=== PATIENT | female | born 1945 | race Two or more races ===

== ENCOUNTER → 2017-10-21 07:25 | Outpatient (CLI) | payer MEDICARE, SELFPAY ==
[2017-10-21 09:00] LABS: AST(SGOT) 16 U/L (15-37); Alanine Aminotransfer ALT/SGPT 16 U/L (13-56); Albumin, Serum 3.2 g/dL (3.2-5.0); Alkaline Phosphatase 87 U/L (45-117); Bilirubin, Direct 0.09 mg/dL (0.00-0.30); Cholesterol 161 mg/dL (200); Globulin 3.9 g/dL (2.2-4.2); High Density Lipoprotein 52 mg/dL; Protein, Total 7.1 g/dL (6.4-8.2); Triglycerides 92 mg/dL; Very Low Density Lipoprotein 18 mg/dL (5-40)
== END ==
PROVIDERS: Visit Provider Internal Medicine Cardiovascular Disease
DX: E78.5 Hyperlipidemia, unspecified (principal)
CPT/HCPCS: 36415; 80061; 80076

== ENCOUNTER → 2017-11-25 13:01 | Outpatient (CLI) | payer MEDICARE, SELFPAY ==
--- NOTE | 2017-11-25 13:02 | CDU_ITS ---
Reason For Study: vertigo Rt. Velocities/BP Lt. Velocities/BP Prox CCA 91.5/16.4 cm/sec. Prox CCA 85.6/21.1 cm/sec. Mid CCA 86.2/20.5 cm/sec. Mid CCA 82.7/20.5 cm/sec. Dist CCA 76.2/19.9 cm/sec. Dist CCA 88.5/22.9 cm/sec. Prox ICA 70.7/25.1 cm/sec. Prox ICA 122/30.6 cm/sec. Mid ICA 79.4/24.4 cm/sec. Mid ICA 123/29.9 cm/sec. Dist ICA 108/34.6 cm/sec. Dist ICA 116/31.4 cm/sec. Rt. ICA/CCA = 1.3. Lt. ICA/CCA = 1.5. Prox ECA 143/12.8 cm/sec. Prox ECA 225/26.2 cm/sec. Rt. Vert. 38.5/11.0 cm/sec. Lt. Vert. 86.4/23.6 cm/sec. Right Extracranial There is intimal thickening but no significant atherosclerotic plaque noted in the right common carotid artery. There is homogeneous, smooth atherosclerotic plaque noted in the right internal carotid artery. There is heterogeneous, irregular atherosclerotic plaque noted in the right external carotid artery. Antegrade flow is noted in the right vertebral artery. Left Extracranial There is intimal thickening but no significant atherosclerotic plaque noted in the left common carotid artery. There is heterogeneous, irregular atherosclerotic plaque noted in the left internal carotid artery. There is homogeneous, smooth atherosclerotic plaque noted in the left external carotid artery. Antegrade flow is noted in the left vertebral artery. Procedure Carotid Duplex [id number]. The exam was diagnostic. Exam performed in department. Interpretation Summary Minimal smooth plague at the proximal right internal carotid with <50% stenosis. Mild disease right external carotid Focal plague at the proximal left internal carotid with <50% stenosis. Moderate disease left external carotid Patent and antegrade vertebrals bilaterally Findings are similar to the previous examination of 01/14/10. Ordering Physician: Fazal Evans Performed By: Carlos A España RVT
== END ==
PROVIDERS: Visit Provider Internal Medicine Cardiovascular Disease
DX: R09.89 Other specified symptoms and signs involving the circulatory and respiratory systems (principal)
CPT/HCPCS: 93880

== ENCOUNTER → 2020-05-21 08:13 | Outpatient (CLI) | payer MEDICARE, SELFPAY ==
[2017-11-10 14:50] VITALS: BMI 23.4
[2020-05-21 08:38] LABS: Absolute Lymphocyte Count 1.69 X10^3/uL (0.83-4.51); Absolute Neutrophil Count 2.8 X10^3/uL (2.0-7.7); Basophil# 0.04 X10^3/uL; Basophil% 0.8 % (0-1); Eosinophil# 0.16 X10^3/uL; Eosinophils% 3.2 % (0-5); Hematocrit 40.8 % (37-47); Hemoglobin 12.8 g/dL (12.0-15.0); Lymphocyte # 1.69 X10^3/ul (4.0); Lymphocyte % 33.5 % (19-41); Mean Corp Hgb Conc 31.4 g/dL (32-36); Mean Corpuscular Volume 92.5 fL (81-99); Mean Platelet Vol. 9.7 fl (6.2-12.0); Monocyte# 0.32 X10^3/uL; Monocyte% 6.3 % (0-10); NRBC Flagged by Analyzer 0 % (0-5); Neutrophil # 2.82 X10^3/uL (2.7-7.7); Neutrophil % 55.8 % (47-70); Platelet Count 309 K/mm3 (150-450); RBC Distribution Width CV 12.1 % (11.6-14.6); RBC Distribution Width SD 41.7 fl (35.1-43.9); Red Blood Count 4.41 M/mm3 (4.2-5.4); White Blood Count 5.1 K/mm3 (4.4-11.0)
[2020-05-21 09:18] LABS: AST(SGOT) 20 U/L (15-37); Alanine Aminotransfer ALT/SGPT 18 U/L (13-56); Albumin, Serum 3.6 g/dL (3.2-5.0); Alkaline Phosphatase 91 U/L (45-117); Anion Gap 4 (5-15); BUN 15 mg/dL (7-18); BUN/Creat Ratio 23.7 RATIO (10-20); Bilirubin, Direct 0.13 mg/dL (0.00-0.30); Calcium,Total 8.7 mg/dL (8.5-10.1); Chloride 105 mmol/L (98-107); Cholesterol 165 mg/dL (200); Creatinine, Serum 0.63 mg/dL (0.55-1.02); EST Glomerular Filtration Rate 97 mL/min (>60); Est Glom Filt Rate - Afr Amer 118 mL/min (>60); Globulin 3.7 g/dL (2.2-4.2); Glucose 101 mg/dL (74-106); High Density Lipoprotein 64 mg/dL; Protein, Total 7.3 g/dL (6.4-8.2); Sodium Level 139 mmol/L (136-145); Triglycerides 90 mg/dL; Very Low Density Lipoprotein 18 mg/dL (5-40)
== END ==
PROVIDERS: Referring Provider Internal Medicine Cardiovascular Disease; Visit Provider Internal Medicine Cardiovascular Disease
DX: I25.10 Atherosclerotic heart disease of native coronary artery without angina pectoris (principal); I25.2 Old myocardial infarction; Z95.5 Presence of coronary angioplasty implant and graft; E78.00 Pure hypercholesterolemia, unspecified
CPT/HCPCS: 36415; 80048; 80061; 80076; 85025

== ENCOUNTER → 2020-07-03 07:03 | Outpatient (CLI) | payer MEDICARE, SELFPAY ==
[2020-06-11 07:53] VITALS: BMI 22.3
--- NOTE | 2020-07-03 18:30 | STRESSREP ---
Stress Test Report Exercise myocardial perfusion stress test. 75-year-old lady with a history of previous coronary artery stenting. Stress protocol: Resting EKG demonstrates sinus bradycardia with a rate of 51 bpm normal intervals are noted resting blood pressure is 116/62 mmHg. The patient exercised according to regular [facility] protocol for a total duration of 4 minutes and 28 seconds the maximum heart rate attained was 103 bpm which was 71% of max impacted heart rate the maximum workload was 6.3 metabolic equivalents. The test was terminated due to dyspnea. At rest there were no ST or T wave changes noted suggest ischemia at peak exercise upsloping ST changes were noted with no meet any criteria for ischemia. The resting blood pressure was 106/62 with a peak blood pressure 142/70 mmHg. No clinical angina was noted. Myocardial perfusion protocol. 11.2 mCi of technetium 99m sestamibi was injected at rest. Patient exercised for 4-1/2 minutes and at peak exercise 31.5 mCi of technetium 99m sestamibi was injected stress images were obtained stress and rest images were reconstructed and compared in the short axis vertical long horizontal long axis. Gated images were also obtained Perfusion SPECT analysis: Review of the stress images demonstrate normal uptake of tracer noted in all areas of the myocardium the resting images similar demonstrate normal uptake of tracer noted in all areas of the myocardium. No areas of reversibility are noted suggest ischemia no previous infarct is noted. Gated SPECT analysis: The gated ejection fraction is 83%. Conclusion: Normal exercise myocardial perfusion stress test at a moderate workload. Failure to attain 85% of max impacted heart rate noted. Preserved ejection fraction.
== END ==
PROVIDERS: Referring Provider Internal Medicine Cardiovascular Disease; Visit Provider Internal Medicine Cardiovascular Disease
DX: I25.10 Atherosclerotic heart disease of native coronary artery without angina pectoris (principal); Z95.5 Presence of coronary angioplasty implant and graft
CPT/HCPCS: 78452; 93017; A9500; A4216

== ENCOUNTER 2020-08-29 08:59 | Outpatient (RCR) | payer MEDICARE, SELFPAY ==
[2020-06-11 07:53] VITALS: BMI 22.3
== END 2020-08-29 23:59 ==
LOC: IMMUN 08:59
PROVIDERS: Visit Provider Family Medicine
DX: Z23 Encounter for immunization (principal)
CPT/HCPCS: 0011A; 0012A; 91301

== ENCOUNTER 2022-07-16 11:11 | Outpatient (CLI) | payer MEDICARE, SELFPAY ==
[2022-07-16 12:56] LABS: Absolute Lymphocyte Count 1.75 X10^3/uL (0.83-4.51); Absolute Neutrophil Count 3.1 X10^3/uL (2.0-7.7); Basophil# 0.06 X10^3/uL; Basophil% 1.1 % (0-1); Eosinophil# 0.13 X10^3/uL; Eosinophils% 2.3 % (0-5); Hematocrit 41.3 % (37-47); Hemoglobin 12.8 g/dL (12.0-15.0); Lymphocyte # 1.75 X10^3/ul (0.83-4.51); Lymphocyte % 31.5 % (19-41); Mean Corpuscular Hgb 28.6 pg (27.0-32.0); Mean Corpuscular Volume 92.2 fL (81-99); Mean Platelet Vol. 10.6 fl (6.2-12.0); Monocyte# 0.45 X10^3/uL; Monocyte% 8.1 % (0-10); NRBC Flagged by Analyzer 0 % (0-5); Neutrophil # 3.14 X10^3/uL (2.7-7.7); Neutrophil % 56.5 % (47-70); Platelet Count 341 K/mm3 (150-450); RBC Distribution Width CV 12.5 % (11.6-14.6); RBC Distribution Width SD 42.4 fl (35.1-43.9); Red Blood Count 4.48 M/mm3 (4.2-5.4); White Blood Count 5.6 K/mm3 (4.4-11.0)
[2022-07-16 13:34] LABS: AST(SGOT) 15 U/L (15-37); Alanine Aminotransfer ALT/SGPT 20 U/L (13-56); Albumin, Serum 3.5 g/dL (3.2-5.0); Alkaline Phosphatase 91 U/L (45-117); Anion Gap 3 (5-15); BUN 16 mg/dL (7-18); BUN/Creat Ratio 29.5 RATIO (10-20); Bilirubin, Direct 0.12 mg/dL (0.00-0.30); Calcium,Total 8.9 mg/dL (8.5-10.1); Chloride 106 mmol/L (98-107); Cholesterol 169 mg/dL (200); Creatinine, Serum 0.54 mg/dL (0.55-1.02); EST Glomerular Filtration Rate 116 mL/min (>60); Est Glom Filt Rate - Afr Amer 140 mL/min (>60); Globulin 3.7 g/dL (2.2-4.2); Glucose 84 mg/dL (74-106); High Density Lipoprotein 62 mg/dL; Magnesium 2.3 mg/dL (1.6-2.6); Potassium 3.8 mmol/L (3.5-5.1); Protein, Total 7.2 g/dL (6.4-8.2); Sodium Level 139 mmol/L (136-145); Thyroid Stim Hormone (TSH) 5.47 uIU/mL (0.358-3.74); Triglycerides 171 mg/dL; Very Low Density Lipoprotein 34 mg/dL (5-40)
== END 2022-07-16 23:59 | disposition home or self-care (01) ==
PROVIDERS: Referring Provider Internal Medicine Cardiovascular Disease; Visit Provider Internal Medicine Cardiovascular Disease
DX: Z95.5 Presence of coronary angioplasty implant and graft (principal); E03.5 Myxedema coma; I25.2 Old myocardial infarction
CPT/HCPCS: 36415; 80048; 80061; 80076; 83735; 84443; 85025

== ENCOUNTER → 2025-03-02 | Outpatient (CLI) | payer MEDICARE, SELFPAY ==
--- NOTE | 2025-03-02 09:33 | ECHOD_ITS ---
Reason For Study Reason For Study: CAD/ASHD Procedure This was a 2D Doppler, Color Flow transthoracic echocardiogram. Exam performed in department. Left Ventricle Normal LV size. Left ventricular systolic function is normal. The left ventricular ejection fraction is 60 %. Stage 1 diastolic dysfunction. No regional wall motion abnormalities noted. Right Ventricle Normal RV size. Normal systolic function. Atria Normal left atrium. Normal right atrium. Mitral Valve Normal mitral valve. Tricuspid Valve Normal tricuspid valve. Aortic Valve Normal aortic valve. Pulmonic Valve Normal pulmonic valve. Great Vessels Normal aortic root. The pulmonary artery is normal size. Inferior vena cava collapse with respiration. Pericardium/Pleural No pericardial effusion. MMode/2D Measurements & Calculations LVIDd: 3.9 cm IVSd: 1.1 cm Ao root diam: 2.8 cm LVIDs: 2.1 cm LVPWd: 1.1 cm FS: 46.9 % LAV(MOD-bp): 32.2 ml LVAd ap4: 16.8 cm2 SV(MOD-sp4): 22.1 ml LAV(MOD-bp) Indexed: 21.7 ml/m2 LVLd ap4: 6.2 cm SI(MOD-sp4): 14.8 ml/m2 LAV(MOD-sp2): 33.5 ml EDV(MOD-sp4): 38.7 ml LAV(MOD-sp4): 28.4 ml EDV(sp4-el): 38.4 ml LVAs ap4: 10.0 cm2 LVLs ap4: 5.4 cm ESV(MOD-sp4): 16.7 ml ESV(sp4-el): 15.7 ml EF(MOD-sp4): 57.0 % EF(sp4-el): 59.2 % SV(sp4-el): 22.7 ml LA A4 area: 13.1 cm2 LA dimension(2D): 2.4 cm RA A4 area: 10.1 cm2 Time Measurements MV dec time: 0.27 sec Doppler Measurements & Calculations MV E max reed: 77.3 cm/sec Lat Peak E' Reed: 7.5 cm/sec Med Peak E' Reed: 6.2 cm/sec MV A max reed: 99.1 cm/sec E/E' lat: 10.3 E/E' med: 12.4 MV E/A: 0.78 MV V2 max: 96.7 cm/sec Ao V2 max: 104.8 cm/sec MV max P.7 mmHg MV dec slope: 281.5 cm/sec2 Ao max P.4 mmHg MV V2 mean: 51.6 cm/sec Ao V2 mean: 71.6 cm/sec MV mean P.4 mmHg Ao mean P.4 mmHg MV V2 VTI: 37.9 cm Ao V2 VTI: 28.9 cm AV (velocity ratio): 0.78 LV V1 max: 87.1 cm/sec PA V2 max: 70.3 cm/sec LV V1 max P.0 mmHg PA V2 mean: 51.5 cm/sec LV V1 mean P.6 mmHg LV V1 mean: 59.4 cm/sec LV V1 VTI: 22.5 cm ECHO/Echo Complete Interpretation Summary Normal LV size. Left ventricular systolic function is normal. The left ventricular ejection fraction is 60 %. Stage 1 diastolic dysfunction. Ordering Physician: Fazal Evans Referring Physician: Fazal Evans Performed By: Amna Ho RCS
[2025-03-02 10:05] LABS: Hematocrit 36.5 % (37-47); Hemoglobin 12.0 g/dL (12.0-15.0); Immature Granulocytes Count 0.030 X10^3/uL (0.0-0.0); Mean Corp Hgb Conc 32.9 g/dL (32-36); Mean Corpuscular Volume 89.2 fL (81-99); Mean Platelet Vol. 9.6 fl (6.2-12.0); NRBC Flagged by Analyzer 0 % (0-5); Platelet Count 322 K/mm3 (150-450); RBC Distribution Width CV 12.5 % (11.6-14.6); RBC Distribution Width SD 41.2 fl (35.1-43.9); Red Blood Count 4.09 M/mm3 (4.2-5.4); White Blood Count 5.6 K/mm3 (4.4-11.0)
--- OUTSIDE RECORDS SUMMARY | 2025-03-02 10:50 | XMS RPT_ITS | CCD ---
Author Organization [facility] Care Team Providers Care Repacker Name Role Phone Care Physician, No Primary Primary Care Provider Unavailable Care Physician, No Primary Referring Provider Un available Dr. Fazal Evans Attending Provider [phone] Fazal Evans Attending Unavailable Care Physician, No Primary Referring Unava ilable Care Physician, No Primary Primary Care Unava ilable Care Physician, No Primary Primary Care Unava ilFazal Yañez Referring Unavailable Fazal Evans Attending Unavailable Medications Current Medications Medication Drug Class(es) Dates Sig (Normalized) Sig (Original) aspirin 81 mg delayed release oral tablet (5 sources) Platelet Aggregation Inhibitor, Nonsteroidal Anti-inflammatory Drug Start: 11-08-2017 End: 02-23-2025 take 1 tablet by mouth once daily as needed Aspirin (Adult Low Dose Aspirin) 81 mg tablet,delayed release (DR/EC) Active 81 mg PO daily as needed 0 February 23, 2025 1:10pm Does not take routinely. Frequently holds dose due to bruising and taking aleve 24 hr metoprolol succinate 25 mg extended release oral tablet (15 sources) beta-Adrenergic Piter Start: 06-11-2020 End: 01-15-2025 take 2 tablets by mouth once daily Metoprolol Succinate 25 mg tablet extended release 24 hr Active 12.5 mg PO DAILY 45 3 January 15, 2025 1:27pm Start: 06-11-2020 End: 11-24-2021 take 12.5 mg by mouth once daily Metoprolol Succinate Active 12.5 MG PO daily 45 November 24, 2021 2:31pm Start: 03-22-2019 End: 06-11-2020 take 1 tablet by mouth once daily Metoprolol Succinate 25 mg tablet extended release 24 hr Discontinued 25 mg PO daily 90 90 3 March 23, 2019 7:06am June 11, 2020 12:49pm Start: 11-08-2017 End: 11-05-2018 take 1 tablet by mouth once daily Metoprolol Succinate 25 mg tablet extended release 24 hr Discontinued 25 mg PO daily 90 90 3 November 10, 2017 2:54pm November 04, 2018 12:00am November 05, 2018 12:11am naproxen sodium 220 mg oral tablet (2 sources) Nonsteroidal Anti-inflammatory Drug Start: 07-16-2022 take 1 tablet by mouth once daily Naproxen Sodium (Aleve) 220 mg tablet Active 220 mg PO DAILY July 16, 2022 1:00am nitroglycerin 0.4 mg sublingual tablet (4 sources) Nitrate Vasodilator Start: 07-16-2022 Nitroglycerin 0.4 mg tablet, sublingual Active 0.4 mg SL every 5 to 15 minutes as needed 8640 30 0 July 16, 2022 11:19am Start: 07-16-2022 Nitroglycerin Active 0.4 MG SL every 5 to 15 minutes 8640 30 July 16, 2022 10:19am Start: 11-08-2017 End: 07-16-2022 Nitroglycerin 0.4 mg tablet, sublingual Discontinued SL 30 0 November 08, 2017 12:00am July 16, 2022 11:20am Start: 11-08-2017 End: 07-16-2022 Nitroglycerin Discontinued S L 30 November 07, 2017 11:00pm July 16, 2022 10:20am pravastatin sodium 10 mg oral tablet (20 sources) HMG-CoA Reductase Inhibitor Start: 03-22-2019 End: 02-05-2025 Pravastatin 10 mg tablet Active 0 .ROUTE .COMPLEX 90 3 February 05, 2025 7:21am TAKE 1 TABLET EVERY DAY Start: 11-08-2017 End: 11-05-2018 take 1 tablet by mouth at bedtime Pravastatin 10 mg tablet Discontinued 10 mg PO AT BEDTIME 90 90 3 November 10, 2017 2:54pm November 04, 2018 12:00am November 05, 2018 12:11am Completed/Discontinued Medications Medication Drug Class(es) Dates Sig (Normalized) Sig (Original) clopidogrel 75 mg oral tablet (8 sources) [id number] Platelet Inhibitor Start: 10-08-2017 End: 07-16-2022 take 1 tablet by mouth once daily Clopidogrel (Plavix) 75 mg tablet Discontinued 75 mg PO daily 90 3 August 07, 2021 5:49pm July 16, 2022 11:40am zolpidem tartrate 5 mg oral tablet (2 sources) gamma-Aminobutyr ic Acid-ergic Agonist Start: 11-08-2017 End: 06-11-2020 take 1 tablet by mouth at bedtime as needed Zolpidem (Ambien) 5 mg tablet Discontinued 5 mg PO BEDTIME as needed November 08, 2017 12:00am June 11, 2020 12:49pm Problems Active Problems Problem Classification Problem Date Documented Da te Episodic/Chronic Coronary atherosclerosis and other heart disease (5 sources) Old anterior myocardial infarction ; Translations: [Old myocardial infarction] Onset: 05-02-2008 11-08-2017 Chronic Comment on above: PCI-MANAS-LAD 05/2008 PCI-MANAS-Mid RCA w/ 2.5 x 24 mm Beverly Stent 08/09/2008 Past or Other Problems Problem Classification Problem Date Documented Da te Episodic/Chronic Coronary atherosclerosis and other heart disease (1 source) Presence of coronary angioplasty implant and graft; Translations: [Percutaneous transluminal coronary angioplasty status] Onset: 08-09-2008 Episodic Results Test Name Value Interpretation Reference Range Facil [facility] Cardiology Visit Reporton Cardiology Visit Report [facility] [address] [place] [address] OFFICE VISIT Date of Service: 02/23/25 MR#: [id number] Acct: [id number] Name: PAMELA JUSTICE Rep #: [id number] : 1945 Provider: Dr. Fazal Evans MD Age/Sex: 79/F Location: [facility] Status: Signed HPI HPI History of Present Illness Details: 77-year-old lady with a history of coronary artery disease. She is status post angioplasty and stenting of the left anterior descending artery with a 95% complex eccentric stenosis, and 90% diagonal stenosis, circumflex artery with mild disease, and right coronary artery with concentric 70% stenosis. She underwent angioplasty of the left anterior descending artery and the right coronary artery in 2008. She had undergone a stress test in 2015 with no evidence of ischemia at a moderate workload and most recently in July 2020. That was also at a workload of 6.3 metabolic equivalents. Overall she seems to be doing well and has not had any major complaints. She does have some fatigue. She denies any chest pain no paroxysmal nocturnal dyspnea or pedal edema no neck arm or jaw discomfort to suggest angina. She does have a soft right-sided carotid bruit and no pedal edema her blood pressure is under excellent control. Intake Vital Signs 07/16/22 10:06 02/23/25 13:11 02/23/25 13:44 Height 5 ft 1 in 5 ft 1 in 5 ft 1 in Weight: 114 lb BMI 21.5 BP 140/65 H 150/65 H Blood Pressure Location Lt brachial Lt brachial Position Sitting Sitting Respiration 18 Pulse 57 L 54 L Pulse Source Monitor Monitor Intake Visit Reasons: OVERDUE FOR OV/LAST SEEN 07/2022 Allergies No Known Allergies Allergy (Verified 07/16/22 10:17) Medications ???Medication ???Instructions ???Recorded ???Confirmed ???Type naproxen sodium 220 mg tablet 220 mg PO DAILY 07/16/22 02/23/25 History (Aleve) nitroglycerin 0.4 mg sublingual 0.4 mg sublingual Q5-15M PRN 30 02/23/25 History tablet days #8,640 tabs metoprolol succinate 25 mg 12.5 mg (1/2 x 25 mg) PO DAILY #45 01/15/25 02/23/25 Rx tablet,extended release 24 hr TABLETS pravastatin 10 mg tablet See Rx Instructions .Route 5 02/23/25 Rx .COMPLEX #90 tabs aspirin 81 mg tablet,delayed 81 mg PO QDAY PRN 02/23/25 5 History release (Adult Low Dose Aspirin) Have you fallen in the past year?: No PFSH Medical History Atherosclerosis of coronary artery of [place] heart without angina pectoris Old anterior myocardial infarction (05/2008) Osteoarthritis Surgical History H/O arthroscopy of right knee History of coronary artery stent placement (08/09/08) Family History Mother Breast cancer Father CVA (cerebral vascular accident) CAD (coronary artery disease) Social History Smoking Status: Never smoker alcohol intake: current alcohol intake frequency: a few times a week Alcohol type: wine substance use type: does not use caffeine: Yes Type: tea Number of servings: 2 ROS Const Const: Positive for fatigue; Negative for weakness ENT ENT: Negative for dizziness or balance problems Cardio Chest Pain: No Palpitations: No Edema: Bilateral (intermittently depending on activity) Muscle aches with walking: None Resp Respiratory: Negative for SOB with activity, SOB at rest or SOB orthopnea SOB lying down GI GI: Positive for heartburn (occasionally); Negative nausea or vomiting Musc Musc: Negative for muscle weakness or balance problems Neuro Neuro: Negative for dizziness, lightheadedness, near syncope, syncope or weakness Endo Endo: Positive for fatigue Cardiology Exam Const Appearance: cooperative, healthy appearing, no acute distress, well developed and well groomed Nutritional Appearance: average body habitus and well nourished Orientation: alert, awake and oriented x3 Head Head: normal to inspection, normocephalic and atraumatic Ears: hearing grossly normal bilaterally and external ears normal Nose: external nose normal, nares normal, nasal mucous membranes and turbinates normal, septum normal and no nasal discharge Face and Sinus: face symmetric Mouth: oral mucosae normal, tongue normal, oropharynx normal and moist mucous membranes Teeth and gingiva: dentition normal Throat: posterior oropharynx normal, tonsils normal and uvula midline Eyes General: appearance normal, both eyes and all related structures Eyelids: eyelids normal Conjunctivae: conjunctivae normal Pupils: PERRL, normal by confrontation and accommodation normal EOM: EOM intact bilaterally Neck Neck: normal visual inspection, tra (more content not included)... Normal [facility] Absolute lymphocyte counton 07-16-2022 Lymphocytes Auto (Unsp spec) [#/Vol] 1.75 10*3/uL 0.83-4.51 [facility] Work Phone: Basophil percentageon 2021 Basophils/100 WBC (Bld) 1.1 % 0-1 [facility] Work Phone: Bilirubin [Mass/Vol] 0.30 mg/dL 0.20-1.00 [facility] Work Phone: Comment on above: For patients on eltr ombopag therapy, use of Dimension Dix TBIL is not recommended. Chloride [Moles/Vol] 106 mmol/L 98-107 [facility] Work Phone: Cholesterol [Mass/Vol] 169 mg/dL <200 [facility] Work Phone: Comment on above: <200 mg/dL Desirable 200-240 mg/dL Borderline >240 mg/dL High Risk Eosinophils/100 WBC (Bld) 2.3 % 0-5 [facility] Work Phone: Glucose [Mass/Vol] 84 mg/dL 74-106 [facility] Work Phone: Neutrophils (Bld) [#/Vol] 3.1 10*3/uL 2.0-7.7 [facility] Work Phone: Neutrophils/100 WBC (Bld) 56.5 % 47-70 [facility] Work Phone: Potassium [Moles/Vol] 3.8 mmol/L 3.5-5.1 [facility] Work Phone: Protein [Mass/Vol] 7.2 g/dL 6.4-8.2 [facility] Work Phone: Sodium [Moles/Vol] 139 mmol/L 136-145 [facility] Work Phone: Triglyceride [Mass/Vol] 171 mg/dL <199 [facility] Work Phone: Comment on above: The drugs N-Acetylcy steine and Metamizole may falsely depress this assay.Serum Triglycerides Reference Interval Normal <150 mg/dL Borderline high 150 - 199 mg/dL High 200 - 499 mg/dL Very High > or = 500 mg/dL WBC (Bld) [#/Vol] 5.6 10*3/uL 4.4-11.0 [facility] Work Phone: Blood erythrocytes count (nu mber/volume)on 07-16-2022 RBC (Bld) [#/Vol] 4.48 10*6/uL 4.2-5.4 [facility] Work Phone: Blood hemoglobin measurement (mass/volume)on 07-16-2022 Hemoglobin (Bld) [Mass/Vol] 12.8 g/dL 12.0-15.0 [facility] Work Phone: Blood lymphocytes/100 leukoc yteson 07-16-2022 Lymphocytes/100 WBC (Bld) 31.5 % 19-41 [facility] Work Phone: Blood monocytes/100 leukocyt eson 07-16-2022 Monocytes/100 WBC (Bld) 8.1 % 0-10 [facility] Work Phone: Blood platelet mean volumeon 07-16-2022 Platelet mean volume (Bld) [Entitic vol] 10.6 fL 6.2-12.0 [facility] Work Phone: Determination of erythrocyte mean corpuscular volume (MCV)on 07-16-2022 MCV (RBC) [Entitic vol] 92.2 fL 81-99 [facility] Work Phone: Direct bilirubinon Bilirubin.direct [Mass/Vol] 0.12 mg/dL 0.00-0.30 [facility] Work Phone: Hematocrit Auto (Bld) [Volum e fraction]on 07-16-2022 Hematocrit (Bld) [Volume fraction] 41.3 % 37-47 [facility] Work Phone: Laboratory - Chemistry and C hemistry - challengeon 07-16-2022 ALP [Catalytic activity/Vol] 91 U/L 45-117 [facility] Work Phone: ALT [Catalytic activity/Vol] 20 U/L 13-56 [facility] Work Phone: CO2 [Moles/Vol] 30.0 mmol/L 21.0-32.0 [facility] Work Phone: Globulin (S) [Mass/Vol] 3.7 g/dL 2.2-4.2 [facility] Work Phone: Magnesium [Mass/Vol] 2.3 mg/dL 1.6-2.6 [facility] Work Phone: Urea nitrogen/Creatinine [Mass ratio] 29.5 mg/mg 10-20 [facility] Work Phone: Laboratory - Hematology and Cell countson 07-16-2022 Erythrocyte distribution width (RBC) [Entitic vol] 42.4 fL 35.1-43.9 [facility] Work Phone: Erythrocyte distribution width (RBC) [Ratio] 12.5 % 11.6-14.6 [facility] Work Phone: Immature granulocytes/100 WBC (Bld) 0.500 % 0.0-0.9 [facility] Work Phone: Comment on above: IG% - Immature Granu locytes (promyelocytes, myelocytes and metamyelocytes) > 1% indicates that a LEFT SHIFT is Present. MCH (RBC) [Entitic mass] 28.6 pg 27.0-32.0 [facility] Work Phone: Nucleated RBC/100 WBC (Bld) [Ratio] 0 % 0-5 [facility] Work Phone: MCHC Auto (RBC) [Mass/Vol]on 07-16-2022 MCHC (RBC) [Mass/Vol] 31.0 g/dL 32-36 [facility] Work Phone: No Panel Informationon 07-16 Estimated GFR (MDRD) Amer 140 mL/min >60 [facility] Work Phone: Comment on above: GFR Calc Estimated GFR (MDRD) Non-Af Amer 116 mL/min >60 [facility] Work Phone: Comment on above: Non- GFR Calc Thyroid Stimulating Hormone (TSH) 5.47 uIU/mL 0.358-3.74 [facility] Work Phone: Platelets bldon 07-16-2022 Platelets (Bld) [#/Vol] 341 10*3/uL 150-450 [facility] Work Phone: Serum or plasma albumin gio urement (mass/volume)on 07-16-2022 Albumin [Mass/Vol] 3.5 g/dL 3.2-5.0 [facility] Work Phone: Serum or plasma calcium gio urement (mass/volume)on 07-16-2022 Calcium [Mass/Vol] 8.9 mg/dL 8.5-10.1 [facility] Work Phone: Serum or plasma cholesterol in HDL measurement (mass/volume)on 07-16-2022 Cholesterol in HDL [Mass/Vol] 62 mg/dL >40 [facility] Work Phone: Comment on above: The drugs N-Acetylcy steine and Metamizole may falsely depress this assay. Reference Range HDL <40 mg/dL Low HDL Cholesterol HDL >or= 60 mg/dL High HDL Cholesterol Serum or plasma cholesterol in VLDL measurement (mass/volume)on 07-16-2022 Cholesterol in VLDL [Mass/Vol] 34 mg/dL 5-40 [facility] Work Phone: Serum or plasma creatinine m easurement (mass/volume)on 07-16-2022 Creatinine [Mass/Vol] 0.54 mg/dL 0.55-1.02 [facility] Work Phone: Comment on above: The validity of the calculated GFR & GFRAA in patients over 70 years has not been determined. Clinical correlation is essential. Serum or plasma low density lipoprotein (LDL) cholesterol measurement (mass/volume)on 07-16-2022 Cholesterol in LDL [Mass/Vol] 73 mg/dL 0-130 [facility] Work Phone: Serum or plasma urea nitroge n measurement (mass/volume)on 07-16-2022 Urea nitrogen [Mass/Vol] 16 mg/dL 7-18 [facility] Work Phone: Thin prep Papanicolaou smear with manual screeningon 07-16-2022 Thin prep Papanicolaou smear with manual screening 15 U/L 15-37 [facility] Work Phone: Thin prep Papanicolaou smear with manual screening 3 5-15 [facility] Work Phone: Vital Signs Date Time Vital Sign Value Performing Clinician Bebeto cabezas 02-23-2025 13:13-0400 Body height 154.94 cm No Primary Care Physician [facility] 02-23-2025 13:11-0400 Body mass index (BMI) [Ratio] 21.5 kg/m2 No Primary Care Physician [facility] 02-23-2025 13:11-0400 Body weight 51.7 kg No Primary Care Physician [facility] 02-23-2025 13:11-0400 Diastolic blood pressure 65 mm[Hg] No Primary Care Physician [facility] 02-23-2025 13:11-0400 Heart rate 57 /min No Primary Care Physician [facility] 02-23-2025 13:11-0400 Respiratory rate 18 /min No Primary Care Physician [facility] 02-23-2025 13:11-0400 Systolic blood pressure 140 mm[Hg] No Primary Care Physician [facility] 07-16-2022 10:06-0500 Body height 154.94 cm No Primary Care Physician [facility] Work Phone: 07-16-2022 10:06-0500 Body mass index (BMI) [Ratio] 22.6 kg/m2 No Primary Care Physician [facility] Work Phone: 07-16-2022 10:06-0500 Body weight 54.43 kg No Primary Care Physician [facility] Work Phone: 07-16-2022 10:06-0500 Diastolic blood pressure 63 mm[Hg] No Primary Care Physician [facility] Work Phone: 07-16-2022 10:06-0500 Heart rate 55 /min No Primary Care Physician [facility] Work Phone: 07-16-2022 10:06-0500 Respiratory rate 16 /min No Primary Care Physician [facility] Work Phone: 07-16-2022 10:06-0500 Systolic blood pressure 136 mm[Hg] No Primary Care Physician [facility] Work Phone: Encounters Encounter Date Encounter Type Care Provider Facility Start: 2025 ambulatory No Primary Car e Physician Facility:[facility] Start: 02-23-2025 End: 02-23-[address] Fazal Evans MD -[facility] Work Phone: Start: 02-23-2025 End: 02-23-2025 ambulatory No Primary Care Physician -[facility] Start: 07-16-2022 End: 07-16-2022 ambulatory No Primary Care Physician [facility] Work Phone: Start: 07-16-2022 End: 07-16-2022 Patient encounter procedure No Primary Care Physician [facility] Start: 07-16-2022 End: 07-16-2022 Patient encounter procedure No Primary Care Physician [facility] Procedures Date Procedure Procedure Detail Performing Clinician Start: 08-09-2008 History of placement of stent for coronary artery disease History of coronary artery stent placement No Primary Care Physician Comment on above: PCI-MANAS-LAD 05/2008; PCI-MANAS-Mid RCA 08/09/2008 Immunizations Immunization Date Immunization Notes Care Provider Fa cility 09-26-2020 Covid (Moderna) No Primary C are Physician [facility] 08-29-2020 Covid (Moderna) No Primary C are Physician [facility] Payers Date Payer Category Payer Self-pay [id number] 1992 Medicare [id number] Medicare MEDICARE PART A B [id number] Medicare [id number] Unknown [id number] Unknown [id number] Social History Date Type Detail Facility Start: 07-16-2022 Tobacco smoking stat [facility] Unknown if ever smoked [facility] Work Phone: Start: 1945 Sex Assigned At Female W [facility] Start: 07-16-2022 Tobacco smoking stat us NHIS Never smoked tobacco (finding) [facility] Evaluation note 08-09-2008 Note Date & Type Note Facility 08-09-2008 Evaluation note Diagnosis Onset Date History of coronary artery stent placement August 09, 2008 chronic [facility] Work Phone: Evaluation note Note Date & Type Note Facility Evaluation note No assessment information availa ble [facility] Work Phone: Reason for referral (narrative) Note Date & Type Note Facility Reason for referral (narrative) No reason for referral information available [facility] Work Phone: Chief Complaint and Reason for Visit Chief Complaint MED REFILL Reason for Visit History of coronary artery stent placement Chief Complaint Admit Date OVERDUE FOR OV/LAST SEEN 07/2022February 232024 12:59pm Family History No Family History Records Found Relationship Condition Age at Onset Recorded Date/T gerri mother Malignant neoplasm of breast Unknown father Cerebrovascular accident (CVA) Unknown Coronary artery disease Unknown Summary Purpose Advance Directives No Advanced Directives Records Found Additional Source Comments Goals (unrecognized section and content) Goals may be documented in a n alternate sectionGoals may be documented in an alternate section Care Teams (unrecognized sec tion and content) Team Status: Active Member Role/Relationship Status Dates No Primary Care Physician Family Provider Active No Primary Care Physician Primary Care Provider Active Team Status: Inactive Member Role/Relationship Status Dates No Primary Care Physician Primary Care Provider Active Start: February 23, 2025 End: February 23, 2025 No Primary Care Physician Referring Provider Active Start: February 23, 2025 End: February 23, 2025 Dr. Fazal Evans MD Attending Provider Active S tart: February 23, 2025 End: February 23, 2025 INFORMATION SOURCE (unrecogn ized section and content) DATE CREATED AUTHOR 03/01/2025 [facility] FOR RECORDS PERTAINING TO PATIENTS WHO ARE OR HAVE BEEN ENROLLED IN A CHEMICAL DEPENDENCY/SUBSTANCEABUSE PROGRAM, SOME INFORMATION MAY BE OMITTED. This clinical summary was aggregated from multiple sources. Caution should be exercised in using it in the provision of clinical care. This summary normalizes information from multiple sources, and as a consequence, information in this document may materially change the coding, format and clinical context of patient data. In addition, data may be omitted in some cases. CLINICAL DECISIONS SHOULD BE BASED ON THE PRIMARY CLINICAL RECORDS. [facility] [employer] [facility]. provides no warranty or guarantee of the accuracy or completeness of information in this document.
[2025-03-02 11:35] LABS: AST(SGOT) 22 U/L (<=31); Alanine Aminotransfer ALT/SGPT 13 U/L (<=34); Albumin, Serum 4.0 g/dL (3.4-4.8); Alkaline Phosphatase 85 U/L (35-104); Anion Gap 9 (5-15); BUN 19 mg/dL (4-19); BUN/Creat Ratio 29.5 RATIO (10-20); Calcium,Total 9.3 mg/dL (7.6-11.0); Carbon Dioxide 25.8 mmol/L (21.0-32.0); Chloride 106 mmol/L (98-108); Cholesterol 173 mg/dL (<=200); Globulin 2.8 g/dL (2.2-4.2); Glucose 102 mg/dL (70-99); Low Density Lipoprotein Calc. 95 mg/dL; Magnesium 2.2 mg/dL (1.5-2.2); Potassium 4.3 mmol/L (3.3-5.1); Triglycerides 104 mg/dL; Very Low Density Lipoprotein 21 mg/dL (5-40); cholesterol:hdl ratio screen 3.03
== END | disposition home or self-care (01) ==
PROVIDERS: Referring Provider Internal Medicine Cardiovascular Disease; Visit Provider Internal Medicine Cardiovascular Disease
DX: I25.10 Atherosclerotic heart disease of native coronary artery without angina pectoris (principal); I10 Essential (primary) hypertension; Z95.5 Presence of coronary angioplasty implant and graft
CPT/HCPCS: 36415; 80053; 80061; 83735; 84443; 85025; 93306